=== PATIENT | female | born 1960 | race Caucasian/White ===

== ENCOUNTER 2018-07-17 19:02 | Inpatient (IN) | payer BC, OTHER ==
[~2018-07-17] VITALS: Ht 152.4 cm; Wt 132.0 kg
--- NOTE | 2018-07-17 19:19 | ER Report ---
History and Physical Time Seen By MD: 19:18 Hx. of Stated Complaint: PATIENT STATES THAT SHE THINKS THAT SHE HAS A STRANGULATED HERNIA HPI/ROS CHIEF COMPLAINT: Abdominal pain HISTORY OF PRESENT ILLNESS: This is a 58-year-old female who presents to emergency department for abdominal pain. Patient states that she's had 7 children, 6 sections with a hernia repair, last surgery that she had was in the 90s. She states that since then she feels that she's had a ventral hernia that continues to cause her problems, she has to monitor very closely what she eats, she states that often times she feels she can reduce the hernia. She states that last night she began to have increased right-sided abdominal pain which is typically where she feels the discomfort, it has been increasing in intensity, she's had nausea with severe intermittent abdominal pain. No bowel movement since yesterday, she has regular typically 2-3 times a day. No dysuria. No fevers or chills. No chest pain or shortness of breath. REVIEW OF SYSTEMS: Constitutional: No fever, no chills. Eyes: No discharge. ENT: No sore throat. Cardiovascular: No chest pain, no palpitations. Respiratory: No cough, no shortness of breath. Gastrointestinal: As above. Genitourinary: No hematuria. Musculoskeletal: No back pain. Skin: No rashes. Neurological: No headache. Allergies: Coded Allergies: No Known Drug Allergies (Unverified , 07/17/18) Home Meds Reported Medications Diphenhydramine Hcl (BENADRYL) 25 Mg Capsule, 25 MG PO Q6-8H, CAPSULE 07/17/18 Ferrous Sulfate, Dried (IRON) 159 Mg Tablet.er, 159 MG PO 07/17/18 Acetaminophen (TYLENOL) 325 Mg Tablet, 325 MG PO, TAB 07/17/18 Inulin/Chromium Picolinate (Fiber Gummies) 1 Each Tab.chew 07/17/18 L.acidoph & Paracasei,B.lactis (Probiotic) 1 Each Capsule 07/17/18 Elderberry Fruit and Flower (Black Elderberry 575 mg Cap) 460 Mg-115 Mg Capsule 07/17/18 Past Medical/Surgical History Patient has a past medical and surgical history of 6 C-sections, multiple abdominal surgeries, hernia repair, appendectomy, right shoulder surgery. Reviewed Nurses Notes: Yes Hx Smoking: No Constitutional Vital Sign - Last 24 Hours 07/17/18 07/17/18 07/17/18 07/17/18 19:08 19:10 19:32 20:02 Temp 98.3 Pulse 90 82 79 Resp 19 B/P (MAP) 159/74 (102) Pulse Ox 80 91 92 O2 Delivery Room Air 07/17/18 07/17/18 07/17/18 07/17/18 20:32 21:00 21:00 21:30 Pulse 93 75 B/P (MAP) 133/67 (89) 133/67 (89) Pulse Ox 93 95 96 07/17/18 21:36 B/P (MAP) 142/75 (97) Physical Exam General Appearance: The patient is alert, has no immediate need for airway protection and no signs of toxicity. Eyes: Pupils equal and round no pallor or injection. ENT, Mouth: Mucous membranes are moist. Respiratory: There are no retractions, lungs are clear to auscultation. Cardiovascular: Regular rate and rhythm, no murmurs, clicks or rubs. Gastrointestinal: Abdomen is round, soft, tenderness to the right abdomen, normoactive bowel sounds in the left upper and left lower quadrants, hypoactive bowel sounds in the right lower quadrant and right upper quadrant. Neurological: Alert and oriented 4. Moving all extremities. Following all commands. No focal neuro deficits. Skin: Warm and dry, no rashes. Musculoskeletal: Neck is supple non tender. Extremities are nontender, nonswollen and have full range of motion. DIFFERENTIAL DIAGNOSIS: After history and physical exam differential diagnosis was considered for abdominal pain in a female including but not limited to ovarian cyst, hernia, pelvic inflammatory disease, ovarian torsion, urinary tract infection, and appendicitis. Medical Decision Making Data Points Result Diagram: 07/17/18203907/17/181947 Laboratory Hematology Test 07/17/18 19:48 07/17/18 20:30 07/17/18 20:40 Sodium Level 138 mmol/L (137-145) Potassium Level 4.2 mmol/L (3.5-5.0) Chloride Level 100 mmol/L (98-107) Carbon Dioxide Level 28 mmol/L (22-31) Blood Urea Nitrogen 9 mg/dl (7-18) Creatinine 0.40 mg/dl (0.52-1.04) Glomerular Filtration Rate Calc > 60.0 Random Glucose 117 mg/dl (75-110) Lactate 1.3 mmol/L (0.7-2.1) Calcium Level 9.5 mg/dl (8.4-10.2) Total Bilirubin 0.4 mg/dl (0.2-1.3) Aspartate Amino Transf (AST/SGOT) 18 U/L (0-35) Alanine Aminotransferase (ALT/SGPT) 23 U/L (0-56) Alkaline Phosphatase 98 U/L (0-126) Total Protein 6.8 g/dl (6.3-8.2) Albumin 4.1 g/dl (3.5-5.0) Lipase 43 U/L (23-300) Urine Color Yellow Urine Clarity Slightly-cloudy Urine pH 7.0 pH (4.8-9.5) Urine Specific Hye 1.016 Urine Protein 30 mg/dL (NEGATIVE) Urine Glucose (UA) Negative mg/dL (NEGATIVE) Urine Ketones Negative mg/dL (NEGATIVE) Urine Blood Large (NEGATIVE) Urine Nitrite Negative (NEGATIVE) Urine Bilirubin Negative (NEGATIVE) Urine Urobilinogen Negative mg/dL (0.2-1.9) Urine Leukocyte Esterase Trace (NEGATIVE) Urine RBC 363 /HPF (0-2/HPF) Urine WBC None /HPF (0-5/HPF) Urine Squamous Epithelial Cells Many /LPF (</=FEW) Urine Bacteria Negative /HPF (NONE-FEW) Urine Mucus None /HPF (NONE-FEW) Red Blood Count 4.24 M/uL (4.17-5.56) Mean Corpuscular Volume 62.8 fL (80.0-96.0) Mean Corpuscular Hemoglobin 17.4 pg (26.0-33.0) Mean Corpuscular Hemoglobin Concent 27.7 g/dL (32.0-36.0) Red Cell Distribution Width 20.1 % (11.5-14.5) Mean Platelet Volume 8.4 fL (7.2-11.1) Neutrophils (%) (Auto) 63.7 % (39.4-72.5) Lymphocytes (%) (Auto) 24.8 % (17.6-49.6) Monocytes (%) (Auto) 7.3 % (4.1-12.4) Eosinophils (%) (Auto) 3.2 % (0.4-6.7) Basophils (%) (Auto) 1.0 % (0.3-1.4) Nucleated RBC Relative Count (auto) 0.0 /100WBC Neutrophils # (Auto) 6.2 K/uL (2.0-7.4) Lymphocytes # (Auto) 2.4 K/uL (1.3-3.6) Monocytes # (Auto) 0.7 K/uL (0.3-1.0) Eosinophils # (Auto) 0.3 K/uL (0.0-0.5) Basophils # (Auto) 0.1 K/uL (0.0-0.1) Nucleated RBC Absolute Count (auto) 0.00 K/uL Peripheral Blood Smear Yes Y/N Chemistry Test 07/17/18 19:48 07/17/18 20:30 07/17/18 20:40 Glomerular Filtration Rate Calc > 60.0 Lactate 1.3 mmol/L (0.7-2.1) Calcium Level 9.5 mg/dl (8.4-10.2) Total Bilirubin 0.4 mg/dl (0.2-1.3) Aspartate Amino Transf (AST/SGOT) 18 U/L (0-35) Alanine Aminotransferase (ALT/SGPT) 23 U/L (0-56) Alkaline Phosphatase 98 U/L (0-126) Total Protein 6.8 g/dl (6.3-8.2) Albumin 4.1 g/dl (3.5-5.0) Lipase 43 U/L (23-300) Urine Color Yellow Urine Clarity Slightly-cloudy Urine pH 7.0 pH (4.8-9.5) Urine Specific Hye 1.016 Urine Protein 30 mg/dL (NEGATIVE) Urine Glucose (UA) Negative mg/dL (NEGATIVE) Urine Ketones Negative mg/dL (NEGATIVE) Urine Blood Large (NEGATIVE) Urine Nitrite Negative (NEGATIVE) Urine Bilirubin Negative (NEGATIVE) Urine Urobilinogen Negative mg/dL (0.2-1.9) Urine Leukocyte Esterase Trace (NEGATIVE) Urine RBC 363 /HPF (0-2/HPF) Urine WBC None /HPF (0-5/HPF) Urine Squamous Epithelial Cells Many /LPF (</=FEW) Urine Bacteria Negative /HPF (NONE-FEW) Urine Mucus None /HPF (NONE-FEW) White Blood Count 9.8 k/uL (4.5-11.0) Red Blood Count 4.24 M/uL (4.17-5.56) Hemoglobin 7.4 g/dL (12.0-16.0) Hematocrit 26.6 % (34.0-47.0) Mean Corpuscular Volume 62.8 fL (80.0-96.0) Mean Corpuscular Hemoglobin 17.4 pg (26.0-33.0) Mean Corpuscular Hemoglobin Concent 27.7 g/dL (32.0-36.0) Red Cell Distribution Width 20.1 % (11.5-14.5) Platelet Count 375 K/uL (150-450) Mean Platelet Volume 8.4 fL (7.2-11.1) Neutrophils (%) (Auto) 63.7 % (39.4-72.5) Lymphocytes (%) (Auto) 24.8 % (17.6-49.6) Monocytes (%) (Auto) 7.3 % (4.1-12.4) Eosinophils (%) (Auto) 3.2 % (0.4-6.7) Basophils (%) (Auto) 1.0 % (0.3-1.4) Nucleated RBC Relative Count (auto) 0.0 /100WBC Neutrophils # (Auto) 6.2 K/uL (2.0-7.4) Lymphocytes # (Auto) 2.4 K/uL (1.3-3.6) Monocytes # (Auto) 0.7 K/uL (0.3-1.0) Eosinophils # (Auto) 0.3 K/uL (0.0-0.5) Basophils # (Auto) 0.1 K/uL (0.0-0.1) Nucleated RBC Absolute Count (auto) 0.00 K/uL Peripheral Blood Smear Yes Y/N Urinalysis Test 07/17/18 20:30 Urine Color Yellow Urine Clarity Slightly-cloudy Urine pH 7.0 pH (4.8-9.5) Urine Specific Hye 1.016 Urine Protein 30 mg/dL (NEGATIVE) Urine Glucose (UA) Negative mg/dL (NEGATIVE) Urine Ketones Negative mg/dL (NEGATIVE) Urine Blood Large (NEGATIVE) Urine Nitrite Negative (NEGATIVE) Urine Bilirubin Negative (NEGATIVE) Urine Urobilinogen Negative mg/dL (0.2-1.9) Urine Leukocyte Esterase Trace (NEGATIVE) Urine RBC 363 /HPF (0-2/HPF) Urine WBC None /HPF (0-5/HPF) Urine Squamous Epithelial Cells Many /LPF (</=FEW) Urine Bacteria Negative /HPF (NONE-FEW) Urine Mucus None /HPF (NONE-FEW) EKG/Imaging Imaging Location: [facility] - [place] Patient: Cornelia Webster : 1960 Visit/Account:[id number] Date of Sevice: 07/17/2018 CT abdomen and pelvis with IV contrast Indication: Abdominal pain. Comparison: None available. . Technique: Axial CT images were obtained through the abdomen and pelvis during injection of nonionic iodinated intravenous contrast. Reformatted coronal and sagittal images were also obtained. One of the following dose optimization techniques was utilized in the performance of this exam: Automated exposure control; adjustment of the mA and/or kV according to the patient's size; or use of an iterative reconstruction technique. Specific details can be referenced in the facility's radiology CT exam operational policy. Contrast: 75 ml of Isovue-370 IV contrast. Findings: Lower lung gupta: Limited views lower lung field are unremarkable. Liver: No focal parenchymal abnormality of the liver. Biliary: Several gallstones are seen in the gallbladder measuring 1.6 cm and less. No wall thickening or other gallbladder abnormality. The common bile duct and biliary system is unremarkable. Pancreas: Normal appearance. Spleen: Normal appearance. Adrenal glands: Unremarkable. Kidneys / retroperitoneum: No evidence of nephrolithiasis or hydronephrosis. No focal abnormality. Bowel / peritoneum / mesenteries: There are couple diverticula along the descending sigmoid colon without pericolonic inflammation. Colon shows no other focal abnormality. The appendix is not visualized. Small bowel shows no focal normality or obstruction. The stomach is decompressed and grossly normal. There is a moderate-sized right paracentral abdominal wall hernia containing fat and portion of colon. There is mild inflammatory changes present within the hernia without other focal abnormality. No discrete obstruction. There is also a small supraumbilical ventral hernia containing fat. No free air, free fluid, fluid collections or other areas of inflammation. Lymph node assessment: No pathologic adenopathy identified. Pelvic structures: Appear unremarkable. Vessels: No significant atherosclerotic calcifications seen throughout a nonaneurysmal abdominal aorta and branches. Musculoskeletal / Body wall: No acute or aggressive osseous abnormality. IMPRESSION: 1. There is a moderate-sized right paracentral ventral hernia containing fat and portion of colon. There are some mild inflammatory changes present. This could represent a early incarceration of the hernia. No obstruction is seen at this time. 2. Cholelithiasis. 3. Small supraumbilical ventral hernia containing fat. I called report to FRANCIS VILA at 07/17/2018 9:09 PM. Report Dictated By: Wil Arredondo at 07/17/2018 8:55 PM Report E-Signed By: Wil Arredondo at 07/17/2018 9:10 PM WSN:[id number] ED Course/Re-evaluation Clinical Indication for ER IV: Hydration, IV Access ED Course The patient was admitted to room. A history and physical were obtained. Differential diagnoses were considered. IV was started. She was given 1 L normal saline bolus. A CBC, CMP were obtained. Lactate was collected. CBC showing H&H of 0.4 and 26.6, MCV 62.8, chemistry unremarkable, negative lactate, urine showing no infection however there is large rbc's, patient has had intermittent postmenopausal bleeding, she is following [facility]EARCH STATISTICIAN. Patient was given 4 mg IV Zofran, 0.5 mg IV Dilaudid 2. A CT of the abdomen and pelvis concerning for a ventral incarcerated hernia, early onset, I did review this with the patient and her were at the bedside. I did speak with Dr. Alonzo, general surgeon on-call as noted below, he is accepting the patient in the surgical services, she will be admitted, a type and screen for 2 units of blood. Also started normal saline at 125 an hour. Patient will likely go to surgery tomorrow. I did review this with the patient, she expressed understanding and was admitted to the medical floor without incident. 07/17/2018 9:33:35 pm this week with Dr. Alonzo regarding the patient's case, he will admit the patient to the medical floor, we will go ahead and type and screen for 2 units of blood and start the transfusion process as the patient will likely need surgery. Decision to Disposition Date: Jul 17, 2018 Decision to Disposition Time: 21:33 Depart Departure Latest Vital Signs Vital Signs Date Time Temp Pulse Resp B/P (MAP) Pulse Ox O2 Delivery O2 Flow Rate FiO2 07/17/18 21:36 142/75 (97) 07/17/18 21:30 75 96 07/17/18 19:08 98.3 19 Room Air Impression: Primary Impression: Incarcerated hernia Additional Impression: Anemia Condition: Improved Disposition: Admitted from ER Problem Qualifiers Additional Impression: Anemia Anemia type: iron deficiency Iron deficiency anemia type: chronic blood loss Qualified Codes: D50.0 - Iron deficiency anemia secondary to blood loss (chronic) FRANCIS VILA-BC Jul 17, 2018 19:19
[2018-07-17] MEDS ORDERED: NS(*) 0.9% 1000 ML BAG 1,000 ML IV ONE ×2 (19:31→21:40)
[2018-07-17] MEDS ORDERED: HYDROMORPHONE HCL 1 MG/ML SYRINGE IVP ONE ×2 (19:35→21:55)
[2018-07-17] MEDS ORDERED: ONDANSETRON 4 MG/2 ML VIAL IVP ONE (19:35)
[2018-07-17] MEDS ORDERED: IOPAMIDOL 76% 150 ML INFUS BTL 150 ML ONE (19:56)
[2018-07-17 21:12] LABS: PLATELET COUNT, AUTOMATED 375 K/uL (150-450)
--- NOTE | 2018-07-17 21:14 | RADIOLOGY IMAGING REPORT ---
FACILITY: [facility] - [place] PATIENT NAME: Cornelia Webster : 1960 MR: [id number] V: [id number] EXAM DATE: ORDERING PHYSICIAN: FRANCIS VILA TECHNOLOGIST: Location: [facility] - [place] Patient: Cornelia Webster : 1960 Visit/Account:[id number] Date of Sevice: 07/17/2018 CT abdomen and pelvis with IV contrast Indication: Abdominal pain. Comparison: None available. . Technique: Axial CT images were obtained through the abdomen and pelvis during injection of nonioni c iodinated intravenous contrast. Reformatted coronal and sagittal images were also obtained. One of the following dose optimization techniques was utilized in the performance of this exam: Autom ated exposure control; adjustment of the mA and/or kV according to the patient's size; or use of an i terative reconstruction technique. Specific details can be referenced in the facility's radiology C T exam operational policy. Contrast: 75 ml of Isovue-370 IV contrast. Findings: Lower lung gupta: Limited views lower lung field are unremarkable. Liver: No focal parenchymal abnormality of the liver. Biliary: Several gallstones are seen in the gallbladder measuring 1.6 cm and less. No wall thickening or other gallbladder abnormality. The common bile duct and biliary system is unremarkable. Pancreas: Normal appearance. Spleen: Normal appearance. Adrenal glands: Unremarkable. Kidneys / retroperitoneum: No evidence of nephrolithiasis or hydronephrosis. No focal abnormality. Bowel / peritoneum / mesenteries: There are couple diverticula along the descending sigmoid colon wit hout pericolonic inflammation. Colon shows no other focal abnormality. The appendix is not visualized . Small bowel shows no focal normality or obstruction. The stomach is decompressed and grossly normal . There is a moderate-sized right paracentral abdominal wall hernia containing fat and portion of colon . There is mild inflammatory changes present within the hernia without other focal abnormality. No di screte obstruction. There is also a small supraumbilical ventral hernia containing fat. No free air, free fluid, fluid collections or other areas of inflammation. Lymph node assessment: No pathologic adenopathy identified. Pelvic structures: Appear unremarkable. Vessels: No significant atherosclerotic calcifications seen throughout a nonaneurysmal abdominal aort a and branches. Musculoskeletal / Body wall: No acute or aggressive osseous abnormality. IMPRESSION: 1. There is a moderate-sized right paracentral ventral hernia containing fat and portion of colon. Th ere are some mild inflammatory changes present. This could represent a early incarceration of the her marisol. No obstruction is seen at this time. 2. Cholelithiasis. 3. Small supraumbilical ventral hernia containing fat. I called report to FRANCIS VILA at 07/17/2018 9:09 PM. Report Dictated By: Wil Arredondo at 07/17/2018 8:55 PM Report E-Signed By: Wil Arredondo at 07/17/2018 9:10 PM WSN:[id number]
[2018-07-17] MEDS ORDERED: DIPH-740 PO (22:01)
[2018-07-17] MEDS ORDERED: INUL1TAB PO (22:01)
[2018-07-17] MEDS ORDERED: FERR159T PO (22:01)
[2018-07-17] MEDS ORDERED: ELDE1CAP PO (22:01)
[2018-07-17] MEDS ORDERED: ACET-1966 PO (22:01)
[2018-07-17] MEDS ORDERED: L.AC1CAP6 PO (22:01)
[2018-07-17 22:36] VITALS: BP 153/74
[2018-07-17] MEDS ORDERED: NS(*) 0.9% 1000 ML BAG 1,000 ML IV PRN (23:05)
[2018-07-17 23:10] VITALS: BP 140/67
[2018-07-17 23:41] VITALS: BP 147/63
[2018-07-18] VITALS (19 sets, daily range): BP systolic 106–160; BP diastolic 50–112; Ht 152.4 cm; Wt 132.0 kg
[2018-07-18] MEDS: HYDROmorphone HCL 2 MG/ML SDV IVP PRN ×6 (00:11→23:30)
[2018-07-18] MEDS: ONDANSETRON 4 MG/2 ML VIAL IVP PRN ×2 (01:58→09:27)
--- NOTE | 2018-07-18 07:54 | Gen Surgery History & Physical ---
History of Present Illness Chief Complaint abd pain History of Present Illness 58 yo f with ventral hernia for >20 yrs. she usually massages it back in after eating. 2 nights ago she was unable to reduce it and the pain was more intense. she vomited at that time. she has still not been able to reduce it. normal bm 2 days ago. small amount diarrhea yesterday. +flatus. h/o 6 c-sections, 2 ventral hernia repairs - mesh. chronic heavy menstrual bleeding. pmh/psh: anemia, fibromyalgia, csec x6, ventral hernia repair x2 with mesh, appendectomy fam hx: htn social hx: no cigs or etoh History Home Meds Reported Medications Diphenhydramine Hcl (BENADRYL) 25 Mg Capsule, 25 MG PO Q6-8H, CAPSULE 07/17/18 Ferrous Sulfate, Dried (IRON) 159 Mg Tablet.er, 159 MG PO 07/17/18 Acetaminophen (TYLENOL) 325 Mg Tablet, 325 MG PO, TAB 07/17/18 Inulin/Chromium Picolinate (Fiber Gummies) 1 Each Tab.chew 07/17/18 L.acidoph & Paracasei,B.lactis (Probiotic) 1 Each Capsule 07/17/18 Elderberry Fruit and Flower (Black Elderberry 575 mg Cap) 460 Mg-115 Mg Capsule 07/17/18 Allergies: Coded Allergies: No Known Drug Allergies (Unverified , 07/17/18) Patient History: FH: HTN (hypertension) MOTHER FH: diabetes mellitus FATHER FH: lupus BROTHER OR SISTER Review of Systems Constitutional: Other (10 pt ros neg except per hpi) Exam General Appearance: Alert, Awake, No Acute Distress, Other (sleeping when i arrived, woke easily) Neuro: No Gross deficits Eyes: Other (per, eomi) ENT: Moist Mucous Membranes Cardiovascular: Other (reg rate) Respiratory: No Respiratory Distress GI: Other (soft, morbidly obese, induration just above and to the right of umbilicus - unable to reduce, ttp. well-healed midline surg scar) Extremities: Other (scds) Integumentary: Skin Intact without Lesion / Mass Psych: Alert & Oriented X3, Appropriate Mood & Affect Medical Decision Making Data Points Result Diagram: 07/18/18 0610 07/17/181947 Assessment and Plan Problems: (1) Incarcerated hernia Status: Acute Assessment & Plan: 07/18/18: discussed options and pros/cons of surgery. plan is ventral hernia repair. npo. pain control. (2) Anemia Status: Acute Assessment & Plan: 07/18/18: chronic heavy menstrual bleeding. 2 units prbc given. hb no 8.8. Venous Thromboembolism Antithrombotics Is Pt On Any Antithrombotics?: No Problem Qualifiers (1) Anemia: Anemia type: iron deficiency Iron deficiency anemia type: chronic blood loss Qualified Codes: D50.0 - Iron deficiency anemia secondary to blood loss (chronic) KAN BROTHERS Jul 18, 2018 07:54
[2018-07-18] MEDS ORDERED: ceFAZolin(*) 2GM/D5W 50ML 50 ML IVPB ONE (08:50)
--- NOTE | 2018-07-18 08:57 | General Surgery Progress Note ---
Subjective Progress Notes Subjective no fevers VSS no vomiting +Flatus Physical Exam Vital Signs Date Time Temp Pulse Resp B/P (MAP) Pulse Ox O2 Delivery O2 Flow Rate FiO2 07/18/18 07:39 83 07/18/18 07:04 97.8 79 142/59 (86) 07/18/18 05:51 Nasal Cannula 2.0 07/18/18 04:52 16 Intake and Output 07/18/18 07:00 Intake Total 1490 ml Balance 1490 ml Intake IV Total 990 ml Blood Product 500 ml # Voids 3 General Appearance: Alert, Awake, No Acute Distress ENT: Normal Cardiovascular: Normal Rhythm & Peripheral Pulses Respiratory: No Respiratory Distress GI: Other (obese, incarcerated hernia to right of prior incision, mild t enderness on deep palapation, no erythema noted) Musculoskeletal: No Weakness/Pain Extremities: Soft and Non Tender Result Diagram: 07/18/18 0610 07/17/18 1948 Monitor Interpretation: Normal Sinus Rhythm Assessment and Plan Problems: (1) Incarcerated hernia Status: Acute Assessment & Plan: 07/18/18: discussed options and pros/cons of surgery. plan is ventral hernia repair. npo. pain control. Consent was signed. Plan for open ventral incisional hernia repair with possible bowel resection, +/- mesh (2) Anemia Status: Acute Assessment & Plan: 07/18/18: chronic heavy menstrual bleeding. 2 units prbc given. Recheck labs this am. Time Spent: < 30 min Exam Sepsis Risk: No Definite Risk Problem Qualifiers (1) Anemia: Anemia type: iron deficiency Iron deficiency anemia type: chronic blood loss Qualified Codes: D50.0 - Iron deficiency anemia secondary to blood loss (chronic) NANCY DEMPSEY MD Jul 18, 2018 08:57
[2018-07-18] MEDS ORDERED: FAMOTIDINE 20 MG TAB ONE (09:21)
[2018-07-18] MEDS ORDERED: NORMOSOL R SOLN(*) 1000 ML BAG 1,000 ML IV ONE (09:25)
[2018-07-18] MEDS ORDERED: FAMOTIDINE(*) 20MG/50ML PREMIX 50 ML IVPB ONE (09:28)
[2018-07-18] MEDS ORDERED: METOCLOPRAMIDE 10 MG/2 ML SDV ONE (09:48)
[2018-07-18] MEDS ORDERED: ONDANSETRON 4 MG/2 ML VIAL ONE (09:48)
[2018-07-18] MEDS ORDERED: PROPOFOL EMUL(*) 10MG/ML 20 ML 20 ML ONE ×2 (09:48→11:29)
[2018-07-18] MEDS ORDERED: DEXAMETHASONE SOD 4 MG/ML VIAL ONE (09:48)
[2018-07-18] MEDS ORDERED: LIDOCAINE MPF 1% 5 ML VIAL ONE (09:48)
[2018-07-18] MEDS ORDERED: fentaNYL CITR 250 MCG/5 ML AMP ONE (09:49)
[2018-07-18] MEDS ORDERED: SUGAMMADEX SOD 500 MG/5 ML SDV ONE (09:49)
[2018-07-18] MEDS ORDERED: ROCURONIUM BROM 10 MG/ML 10 ML ONE (09:58)
[2018-07-18] MEDS ORDERED: MIDAZOLAM 2 MG/2 ML VIAL IVP PRN (10:00)
[2018-07-18] MEDS ORDERED: ACETAMINOPHEN(*)1000 MG/100 ML 100 ML IVPB ONE (10:00)
[2018-07-18] MEDS ORDERED: LIDOCAINE/SOD BICARB 8.4% SYR ONE (10:00)
[2018-07-18] MEDS ORDERED: BUPIV/EPI 0.25% 1:200,000 50ML INFIL ONE (10:38)
[2018-07-18] MEDS ORDERED: KETOROLAC 30 MG/ML VIAL ONE (11:09)
--- NOTE | 2018-07-18 11:38 | Post Operative Note ---
Operative Note - ENT Operative Day Date: Jul 18, 2018 Physicians Surgeon: Cynthia SHEA Diagnosis Pre-Op Diagnosis: incarcerated recurrent incisional hernia Post-Op Diagnosis: same Procedure Findings: incarcerated omentum Procedure(s): recurrent incisional hernia repair, primary Specimen Removed:(Maybe N/A): hernia sac Complications: none Fluids Estimated Blood Loss: minimal Dictated Date OP Note Dictated: Jul 18, 2018 Copies to: KAN BROTHERS ; NANCY DEMPSEY MD Jul 18, 2018 11:38
[2018-07-18] MEDS ORDERED: SUGAMMADEX SOD 200 MG/2 ML SDV ONE (11:51)
[2018-07-18] MEDS ORDERED: NALOXONE HCL 0.4 MG/ML VIAL ONE (11:51)
--- NOTE | 2018-07-18 12:06 | OPERATIVE REPORT 1 ---
EVENT DATE: July 18, 2018 SURGEON: Kyle Marie MD ANESTHESIOLOGIST: Ranjan Rodriguez MD ANESTHESIA: General endotracheal. PREOPERATIVE DIAGNOSIS Incarcerated recurrent incisional hernia. POSTOPERATIVE DIAGNOSIS Incarcerated recurrent incisional hernia. PROCEDURE PERFORMED Primary repair of recurrent incisional hernia. WOUND CLASS Clean. ESTIMATED BLOOD LOSS Minimal. FINDINGS One 0.5 cm defect to the right of a prior midline ventral hernia repair above the umbilicus was incarcerated with omental fat. There was no bowel within the hernia defect. DESCRIPTION OF PROCEDURE The patient was brought to the operating room under general endotracheal anesthesia without incident. She was prepped with ChloraPrep, sterilely draped and antibiotics were infused prior to making incision. A time-out was then performed. An 8 cm transverse incision was made over the palpable incarcerated hernia, which was located in the upper abdomen to the right upper prior midline incision for hernia repair. I carried this down with Bovie electrocautery to find the hernia sac. The hernia sac was opened. The contents included the greater omentum and I could not identify any bowel within its contents. I then circumferentially cleared off all the attachments of the hernia sac and hernia contents so that I was able to slowly reduce the hernia contents into the abdomen. I then slowly excised the hernia sac. I then closed the hernia defect with [id number] Ethibond sutures. The wound was then irrigated and inspected for hemostasis and the incision was closed with eliane. Sterile dressing was applied. The patient was awakened from anesthesia and transported to the postop recovery area. [facility]
[2018-07-18] MEDS ORDERED: fentaNYL CITR 100 MCG/2 ML AMP ONE ×2 (12:10→12:21)
[2018-07-18] MEDS ORDERED: NS(*) 0.9% 1000 ML BAG 1,000 ML IV PRN (17:13)
[2018-07-18 18:21] LABS: PLATELET COUNT, AUTOMATED 328 K/uL (150-450)
[2018-07-18] MEDS: DOCUSATE SOD/SENNA 1 EACH TAB PO SCH (20:32)
[2018-07-19] VITALS (9 sets, daily range): BP systolic 95–162; BP diastolic 62–78
[2018-07-19] MEDS: HYDROmorphone HCL 2 MG/ML SDV IVP PRN ×2 (04:04→05:13)
--- NOTE | 2018-07-19 06:19 | General Surgery Progress Note ---
Subjective Progress Notes Subjective pain overnight +flatus, no bm tolerating clears Physical Exam Vital Signs Date Time Temp Pulse Resp B/P (MAP) Pulse Ox O2 Delivery O2 Flow Rate FiO2 07/19/18 03:28 98.2 69 18 162/68 (99) 94 Nasal Cannula 3.0 Intake and Output 07/19/18 07:00 Intake Total 2150 ml Balance 2150 ml Intake Oral 400 ml IV Total 1750 ml # Voids 2 General Appearance: Alert, Awake, No Acute Distress, Afebrile Neuro: No Gross deficits Eyes: PERRLA ENT: Normal Neck: No Masses Cardiovascular: Normal Rhythm & Peripheral Pulses Respiratory: No Respiratory Distress, Clear to Auscultation GI: Other (obese, soft, attp, dressing dry) Musculoskeletal: No Weakness/Pain Extremities: Soft and Non Tender Integumentary: Skin Intact without Lesion / Mass Psych: Alert & Oriented X3, Appropriate Mood & Affect Result Diagram: 07/18/18 1803 07/18/18 1803 Monitor Interpretation: Normal Sinus Rhythm Assessment and Plan Problems: (1) Incarcerated hernia Status: Acute Assessment & Plan: 07/18/18: discussed options and pros/cons of surgery. plan is ventral hernia repair. npo. pain control. Consent was signed. Plan for open ventral incisional hernia repair with possible bowel resection, +/- mesh 07/19/18: doing well POD1 repair of incarcerated incisional hernia. she is passing flatus, had some increased pain overnight that she attributes to moving around in the bed alot. Advance to reg diet, saline lock IVFs, continue bowel reg, wean IV narcotics. Home later today or tomorrow. (2) Anemia Status: Acute Assessment & Plan: 07/18/18: chronic heavy menstrual bleeding. 2 units prbc given. Recheck labs this am. Exam Sepsis Risk: No Definite Risk Problem Qualifiers (1) Anemia: Anemia type: iron deficiency Iron deficiency anemia type: chronic blood loss Qualified Codes: D50.0 - Iron deficiency anemia secondary to blood loss (chronic) NANCY DEMPSEY MD Jul 19, 2018 06:19
[2018-07-19 08:39] LABS: PLATELET COUNT, AUTOMATED 266 K/uL (150-450)
[2018-07-19] MEDS: POLYETHYLENE GLYCOL 17 GM PKT PO SCH (09:23)
[2018-07-19] MEDS: DOCUSATE SOD/SENNA 1 EACH TAB PO SCH ×2 (09:23→21:16)
[2018-07-19] MEDS ORDERED: NS(*) 0.9% 500 ML BAG 500 ML IV PRN (09:55)
[2018-07-19] MEDS ORDERED: ALBU2.5V36 INH (20:04)
[2018-07-19] MEDS ORDERED: FLUT1DIS28 IH (20:04)
[2018-07-19] MEDS ORDERED: ALB18R INH (20:04)
[2018-07-19] MEDS ORDERED: FERR325T5 PO (20:04)
[2018-07-20 03:25] VITALS: BP 151/69
[2018-07-20 06:49] VITALS: BP 150/79
[2018-07-20] MEDS: ONDANSETRON 4 MG/2 ML VIAL IVP PRN (07:26)
[2018-07-20] MEDS ORDERED: HYDR-654 PO (08:25)
[2018-07-20] MEDS ORDERED: ONDA4TAB9 PO (08:26)
--- NOTE | 2018-07-20 08:27 | Hospitalist Depart ---
Discharge Summary Reason for Hosp/Final Diag: (1) Incarcerated hernia Status: Acute Hospital Course & Plan: 07/18/18: discussed options and pros/cons of surgery. plan is ventral hernia repair. npo. pain control. Consent was signed. Plan for open ventral incisional hernia repair with possible bowel resection, +/- mesh 07/19/18: doing well POD1 repair of incarcerated incisional hernia. she is passing flatus, had some increased pain overnight that she attributes to moving around in the bed alot. Advance to reg diet, saline lock IVFs, continue bowel reg, wean IV narcotics. Home later today or tomorrow. 07/20/18: doing well. +fm. d/c home. (2) Anemia Status: Acute Hospital Course & Plan: 07/18/18: chronic heavy menstrual bleeding. 2 units prbc given. Recheck labs this am. Departure Weight (Pounds): 291 Result Diagram: 07/19/18 0757 07/19/18 0757 Condition: Improved Discharge: Home Discharge Instructions Home Meds Active Scripts Ondansetron 4 Mg Odt (ONDANSETRON 4 MG ODT) 4 Mg Tab.rapdis, 4 MG PO ONCE PRN for NAUSEA/VOMITING, #20 TAB Prov:KAN HARRINGTON 07/20/18 Hydrocodone Bit/Acetaminophen (NORCO 7.5-325 TABLET) 1 Each Tablet, 1 EACH PO Q4H PRN for PAIN, #30 TAB Prov:KAN HARRINGTON P 07/20/18 Reported Medications Ferrous Sulfate (FEOSOL) 325 Mg Tablet, 2 TAB PO QDAY 07/19/18 Diphenhydramine Hcl (BENADRYL) 25 Mg Capsule, 25 MG PO QPM PRN for ALLERGY SYMPTOMS, CAPSULE 07/17/18 Acetaminophen (TYLENOL) 325 Mg Tablet, 325 MG PO PRN for PAIN, TAB 07/17/18 Inulin/Chromium Picolinate (Fiber Gummies) 1 Each Tab.chew, 1 TAB.CHEW PO QDAY 07/17/18 L.acidoph & Paracasei,B.lactis (Probiotic) 1 Each Capsule, 1 CAP PO QDAY 07/17/18 Elderberry Fruit and Flower (Black Elderberry 575 mg Cap) 460 Mg-115 Mg Capsule, 1-2 CAP PO QDAY 3/31/19 Discontinued Reported Medications Albuterol Sulfate 0.083% (ALBUTEROL SULFATE 0.083%) 2.5 Mg/3 Ml Vial.neb, 2.5 MG INH Q4-6H PRN for WHEEZING, INH 07/19/18 Albuterol Sulfate (VENTOLIN HFA) 18 Gm Inh, 1-2 PUFF INH 3-4XD, INH 07/19/18 Fluticasone/Salmeterol (ADVAIR 250-50 DISKUS) 1 Each Disk.w.dev, 1 EACH IH QDAY 07/19/18 Ferrous Sulfate, Dried (IRON) 159 Mg Tablet.er, 159 MG PO 07/17/18 Diet: Regular Activity: No Heavy Lifting Special Instructions: no lifting more than 15 lbs for 6 wks. ok to shower. take stool softener while taking pain meds. f/u dr. li harrington 2 wks. Venous Thromboembolism Antithrombotics Is Pt On Any Antithrombotics?: No Problem Qualifiers (1) Anemia: Anemia type: iron deficiency Iron deficiency anemia type: chronic blood loss Qualified Codes: D50.0 - Iron deficiency anemia secondary to blood loss (chronic) KAN HARRINGTON Jul 20, 2018 08:27
[2018-07-20] MEDS: POLYETHYLENE GLYCOL 17 GM PKT PO SCH (09:02)
[2018-07-20] MEDS: DOCUSATE SOD/SENNA 1 EACH TAB PO SCH (09:02)
[2018-07-20 11:41] VITALS: BP 141/70
== END 2018-07-20 12:55 | disposition home or self-care (01) | DRG 354 ==
LOC: ER 19:18 → MED 21:54
PROVIDERS: ADMIT Surgery; ATTEND Surgery
PROC: 30233N1 Transfusion of Nonautologous Red Blood Cells into Peripheral Vein, Percutaneous Approach (ICD-10-PCS; 2018-07-17)
PROC: 0WQF0ZZ Repair Abdominal Wall, Open Approach (ICD-10-PCS; principal; 2018-07-18 10:35)
DX: K43.0 Incisional hernia with obstruction, without gangrene (principal); Z68.43 Body mass index [BMI] 50.0-59.9, adult; D50.0 Iron deficiency anemia secondary to blood loss (chronic); M79.7 Fibromyalgia; E66.01 Morbid (severe) obesity due to excess calories
CPT/HCPCS: 36415; 36430; 74177; 81001; 82040; 82247; 82310; 82374; 82435; 82565; 82947; 83605; 83690; 84075; 84132; 84155; 84295; 84450; 84460; 84520; 85018; 85025; 86850; 86900; 86901; 86920; 88302; 94667; 96361; 96374; 96375; 96376; 99285; J0131; J0690; J1100; J1170; J1885; J2001; J2250; J2310; J2405; J2704; J2765; J3010; J7030; P9016; Q9967

== ENCOUNTER → 2018-08-03 | Outpatient (CLI) | payer BC ==
[2018-07-18 15:26] VITALS: BMI 56.8
[~2018-08-03] MED LIST: ACET-1966 PO; ALB18R INH; ALBU2.5V36 INH; DIPH-740 PO; ELDE1CAP PO; FERR159T PO; FERR325T5 PO; FLUT1DIS28 IH; HYDR-654 PO; INUL1TAB PO; L.AC1CAP6 PO; ONDA4TAB9 PO
== END ==
LOC: LAB 13:06
PROVIDERS: ATTEND Surgery
DX: D64.9 Anemia, unspecified (principal)
CPT/HCPCS: 36415; 85018

== ENCOUNTER → 2018-10-05 | Outpatient (CLI) | payer BC ==
[2018-07-18 15:26] VITALS: BMI 56.8
[~2018-10-05] MED LIST changes: +HYDR-653 PO; +MEDR10TA57 PO
[2018-10-05 15:30] LABS: PLATELET COUNT, AUTOMATED 309 K/uL (150-450)
== END ==
LOC: LAB 15:11
PROVIDERS: ATTEND Student in an Organized Health Care Education/Training Program
DX: N93.9 Abnormal uterine and vaginal bleeding, unspecified (principal)
CPT/HCPCS: 36415; 84443; 85025; 86376

== ENCOUNTER → 2018-10-06 | Outpatient (CLI) | payer BC ==
[2018-07-18 15:26] VITALS: BMI 56.8
--- NOTE | 2018-10-06 17:04 | RADIOLOGY IMAGING REPORT ---
FACILITY: [facility] PATIENT NAME: Cornelia Webster : 1960 MR: [id number] V: [id number] EXAM DATE: ORDERING PHYSICIAN: JOHN GOODMAN TECHNOLOGIST: Location: [facility] - [place] Patient: Cornelia Webster : 1960 Visit/Account:[id number] Date of Sevice: 10/06/2018 EXAMINATION: Transvaginal pelvic ultrasound with duplex Doppler evaluation HISTORY: Abnormal uterine bleeding.; LMP: Currently bleeding COMPARISON: None. FINDINGS: Uterus: 10.8 cm length x 6.9 cm transverse x 5.0 cm AP. Myometrium: Negative. Endometrium: Thickened and heterogeneous. Some internal vascularity near the lower uterine segment., 18-19 mm in greatest double thickness. Cervix: Negative. Ovaries: Not visualized Free pelvic fluid: None. Pelvic vessels: Normal Bladder: Empty IMPRESSION: 1. Thickened heterogeneous endometrium, some of this could represent clot. There is also some inter nal vascularity seen in the lower uterine segment. Endometrium is abnormally thickened measuring 18 to 19 mm in thickness. 2. No focal abnormality in the myometrium. 3. Nonvisualization of the ovaries. Report Dictated By: Lucina Cifuentes MD at 10/06/2018 4:53 PM Report E-Signed By: Lucina Cifuentes MD at 10/06/2018 4:58 PM WSN:JEAN PIERREH-FREDA
== END ==
LOC: RAD 12:51
PROVIDERS: ATTEND Student in an Organized Health Care Education/Training Program
DX: Z02.9 Encounter for administrative examinations, unspecified (principal)